=== PATIENT | male | born 1965 | race Caucasian/White ===

== ENCOUNTER 2017-12-18 01:37 | Observation (INO) ==
[2017-12-18] MEDS ORDERED: Naloxone 0.4 MG/ML INJ IVP PRN (02:07)
--- NOTE | 2017-12-18 02:46 | Internal Med History&Physical ---
<Kerline Cevallos Wiliam - Last Filed: 12/18/17 06:03> Date of Encounter: 12/18/17 Internal Medicine - H&P: HPI History of present illness: Mr. Briones is a 51 year old male Internal Medicine - H&P: Meds 3 Allergy/AdvReac Type Severity Reaction Status Date / Time No Known Allergies Allergy Verified 12/18/17 03:03 All Systems PM: A 10-system review of systems was performed and is negative for pertinent findings except as documented above in the HPI. - Constitutional Vitals: Temp Pulse Resp BP Pulse Ox 99.3 F 94 16 152/97 96 12/18/17 04:15 12/18/17 04:15 12/18/17 04:15 12/18/17 04:15 12/18/17 04:15 Internal Med - H&P Results - Labs CBC & Chem 7: 12/18/17 04:48 12/18/17 04:48 Labs: Short CBC 12/18/17 Range/Units 04:48 WBC 8.9 (4.3-11.1) K/mcL Hgb 13.2 (12.9-16.9) g/dL Hct 39.3 (37.5-50.1) % Plt Count 146 (140-400) K/mcL Neutrophils # 5.9 (1.6-8.9) K/mcL BMP 12/18/17 04:48 Sodium 137 Potassium 3.0 L Chloride 103 Carbon Dioxide 27 BUN 8 Creatinine 0.46 L Glucose 90 Calcium 9.0 Liver Function 12/18/17 Range/Units 04:48 Total Bilirubin 2.0 H (0.3-1.0) mg/dL AST 53 H (13-39) Units/L ALT 45 (7-52) Units/L Alkaline Phosphatase 55 (34-104) Units/L Albumin 4.1 (3.5-5.7) g/dL - Time Spent With Patient Total time spent is greater than 50% in coordination of care (as documented) at patient's floor/unit and/or counseling patient: - Attending Attestation Patient is a 51-year-old male with a past medical history of alcohol abuse who initially presented to [facility] in [place] with a chief complaint of a laceration to the right side of his head. According to records patient states that he had a seizure and fell and hit his head on an unknown object. The episode of loss of consciousness was reportedly witnessed by his boss at work. Patient was noted to have a sudden blank stare before falling over and losing consciousness. He has a history of daily alcohol use drinking 2/5 of vodka daily. Per records he states he has not had a drink today which "causes him to have seizures". Initial vitals on admission: Blood pressure 177/105, temperature 98.7, pulse 77 bpm, respiratory rate 21 satting 97% on room air. CT of the head was performed which showed no acute intracranial abnormality. Mild right lateral scalp swelling without evidence of fracture. Laboratory findings were unremarkable. Urine toxicology screen was negative. Initial troponin was less than 0.05 blood alcohol level was less than 10. EKG was performed which showed sinus rhythm with a ventricular rate of 79 bpm. No history of present illness was provided in the paperwork sent from [facility]. However we were told that patient has a prior history of seizures in the remote past possibly unrelated to alcohol withdrawal, which the patient corroborated. Last drink was reported to be on . Patient is currently stable, alert oriented 3. No evidence of postictal confusion. Hemodynamically stable. We will admit the patient for treatment of alcohol withdrawal and start patient on CIWA protocol. Patient received banana bag at [facility]. We will continue thiamine; folic acid; multivitamin. Check a.m. electrolytes. Neurology consult for the morning for further evaluation of patient's history of seizure disorder. <Tiffanie Robles - Last Filed: 12/18/17 09:44> Date of Encounter: 12/18/17 Time of Encounter: 02:45 Internal Medicine - H&P: HPI Chief complaint: EtOH withdrawal, seizure History of present illness: Mr. Briones is a 51 year old male presented to [facility] ED for alcohol withdrawal and seizure. The patient is somnolent and quickly falls asleep after being asked a question and doesn't respond to some questions. History difficult to obtain--he is a poor historian, his speech is difficult to understand, and has no prior visits to [place] to allow for reviewing records. Drinks 2 bottles (750 mL each) of vodka daily. Patient says he has seizures after he stops drinking. Reports last drink was yesterday morning. Admits to 3 episodes of non-bloody emesis today. He denies chest pain, dyspnea, headache, anxiety, hematemesis, coffee ground emesis, dysuria, and hematochezia. He denies any past medical history, including: CAD, previous ID, cirrhosis, COPD , gastric ulcers, pancreatitis--does not respond when asked about history of seizures not related to alcohol use. Denies past surgical history, takes no medications, and has no known allergies. Smokes 2-3 packs of cigarettes daily. Denies marijuana, prescription drug, and IV drug use. Currently living in a friend's camper. Regarding family history, he reports his mother of a seizure and had a stroke. ED course: Based on review of [facility] ED report--sustained scalp laceration after falling at time of his seizure. CT head was negative for acute intracranial processes and EKG didn't show signs of acute ischemia. Electrolytes were within normal limits. Elevations see in AST (98), ALT (86), and total bilirubin (2). Troponin negative. EtOH level measured < 10. Received IV banana bag. Transferred to [place] for remote history of seizures without follow up. Past Med Surg Social Fam HX - Social History Smoking Status: Current every day smoker Smokeless Tobacco Status: No Alcohol use: heavy - Family History Mother History Unknown: Yes All Systems PM: A 10-system review of systems was performed and is negative for pertinent findings except as documented above in the HPI. - Constitutional Constitutional: as per HPI - Cardiovascular Cardiovascular ROS IM: as per HPI - Respiratory Respiratory: as per HPI - Gastrointestinal Gastrointestinal: as per HPI - Constitutional Vitals: Temp Pulse Resp BP Pulse Ox 98.9 F 86 18 147/89 94 12/18/17 02:03 12/18/17 02:03 12/18/17 02:03 12/18/17 02:03 12/18/17 02:03 Exam: General: vital signs noted, somnolent, unkempt, no acute distress Head: normocephalic Eyes: PERRL ENT: edentulous Neck: supple, trachea midline Cardio: RRR; no murmurs, gallops, rubs; + S1/S2; no edema Pulm: exam limited by poor cooperation from patient, diminished airflow bilaterally, no respiratory distress; no wheezing or rhonchi Abd: soft, nontender, nondistended, normal bowel sounds Neuro: exam limited by poor cooperation from patient, no focal deficits or pronator drift, somnolent but able to follow commands, moves all extremities to command and spontaneously Ext: no lower extremity edema; 2+/4 radial pulses equal bilaterally, no gross deformities Psych: doesnt appear anxious or agitated Skin: warm, dry, intact Internal Med - H&P Results - Labs CBC & Chem 7: 12/18/17 04:48 12/18/17 04:48 - Assessment and plan (1) Alcohol withdrawal Current Visit: Yes Status: Acute Assessment and plan: IV banana bag given at [facility] Continue supplements thiamine, folate, and multivitamin NPO at this time [facility] protocol Qualifiers: Complication of substance-induced condition: with unspecified complication Qualified Code(s): F10.239 - Alcohol dependence with withdrawal, unspecified (2) Alcohol withdrawal seizure Current Visit: Yes Status: Acute Assessment and plan: Reportedly witnessed by patient's boss and described as patient having a blank stare before he fell and lost consciousness Qualifiers: Complication of substance-induced condition: with unspecified complication Qualified Code(s): F10.239 - Alcohol dependence with withdrawal, unspecified; R56.9 - Unspecified convulsions (3) Chronic alcohol abuse Current Visit: Yes Status: Acute Assessment and plan: Per patient, he drinks 2 bottles (750mL each) of vodka daily x 20 years As above (4) History of seizures Current Visit: Yes Status: Acute Assessment and plan: Details unclear Reportedly has remote h/o seizures possibly unrelated to EtOH use Seizure precautions Neurology consult (5) Tobacco abuse Current Visit: Yes Status: Chronic Assessment and plan: Per patient, he smokes 2-3 ppd (6) DVT prophylaxis Current Visit: Yes Status: Acute Assessment and plan: Heparin 5,000 units SubQ Q12H - Time Spent With Patient Total time spent is greater than 50% in coordination of care (as documented) at patient's floor/unit and/or counseling patient:
[2017-12-18 04:59] LABS: Basophils # 0.1 K/mcL (0.0-0.2); Basophils % 1.1 %; Eosinophils # 0.6 K/mcL (0.0-0.6); Eosinophils % 6.6 %; Hematocrit 39.3 % (37.5-50.1); Hemoglobin 13.2 g/dL (12.9-16.9); Immature Granulocytes % 0.3 % (0-4); Lymphocytes # 1.7 K/mcL (0.6-4.6); Lymphocytes % 18.6 %; Mean Corpuscular HGB Conc 33.6 g/dL (31.6-35.5); Mean Corpuscular Hemoglobin 33.2 pg (28.0-33.3); Mean Platelet Volume 10.9 fL (9.4-12.4); Monocytes # 0.6 K/mcL (0.0-1.3); Monocytes % 6.9 %; Neutrophils # 5.9 K/mcL (1.6-8.9); Platelet Count 146 K/mcL (140-400); Red Blood Count 3.97 M/mcL (4.19-5.50); Red Cell Distribution Width 13.6 % (11.5-14.5); Segmented Neutrophils % 66.5 %
[2017-12-18 05:07] LABS: Prothrombin Time 11.1 Seconds (9.4-12.1)
[2017-12-18 05:10] LABS: Activated Partial Thrombo Time 28.6 Seconds (26.0-36.0)
[2017-12-18 05:18] LABS: Alanine Aminotransferase 45 Units/L (7-52); Albumin 4.1 g/dL (3.5-5.7); Albumin/Globulin Ratio 1.8 (1.1-2.2); Alkaline Phosphatase 55 Units/L (34-104); Aspartate Amino Transferase 53 Units/L (13-39); BUN/Creatinine Ratio 17 (6-26); Blood Urea Nitrogen 8 mg/dL (6-20); Carbon Dioxide 27 mEq/L (23-29); Chloride 103 mEq/L (98-107); Globulin 2.3 g/dL (2.4-3.5); Glucose 90 mg/dL (70-105); Osmolality,Calculated 282 (280-300); Sodium 137 mEq/L (136-145); Total Protein 6.4 g/dL (6.4-8.9); eGFR For Non-African Americans > 60 (> 60)
[2017-12-18] MEDS ORDERED: *HR* LORazepam 2 MG/ML VIAL IVP PRN ×3 (05:23)
[2017-12-18] MEDS ORDERED: Potassium Chloride Elixir 20 MEQ/15 ML UDC PO ONE (06:01)
[2017-12-18 06:15] LABS: Creatine Kinase 443 Units/L (30-223); Magnesium 1.3 mg/dL (1.6-2.6); Phosphorous 3.3 mg/dL (2.7-4.5)
[2017-12-18] MEDS: *HR* Heparin 5,000 UNIT/ML VIAL SQ SCH ×2 (06:45→19:54)
[2017-12-18] MEDS ORDERED: Acetaminophen 325 MG TABLET PO ONE (08:38)
[2017-12-18] MEDS: Folic Acid 1 MG TABLET PO SCH (09:56)
[2017-12-18] MEDS: Thiamine (B-1) 100 MG TABLET PO SCH (09:56)
[2017-12-18] MEDS: Vitamin B Complex/Vit C/Vit E 1 EACH TABLET PO SCH (09:56)
--- NOTE | 2017-12-18 11:42 | Neurology - Consult Note ---
Date of Encounter: 12/18/17 Time of Encounter: 11:36 Assessment and Plan (1) Alcohol withdrawal seizure Current Visit: Yes Status: Acute I agree this is likely alcohol withdrawal seizure. Per history, he has had seizures as a baby but eventually he grew out of it until he started actively heavy drinking about 4-5 years ago. 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 next step would be to work on his alcoholism and to monitor progress via PCP. Please continue medical and supportive care Total time spend on this case is approximately 50 minutes and at least 50% was directed to patient care. Qualifiers: Complication of substance-induced condition: with unspecified complication Qualified Code(s): F10.239 - Alcohol dependence with withdrawal, unspecified; R56.9 - Unspecified convulsions History of Present Illness Chief complaint: seizure and alcohol withdrawl HPI: Mr. Briones is a 51 year old male with PMH significant for heavy alcoholism, liver cirrhosis, tobacco abuse who developed witnessed seizure with a fall. Patient was evaluated in the ER and initially he was very somnolent. Patient is currently wide awake and alert and is able to give medical history regarding his seizure. He states that his mother once told him that he had seizures when he was a baby and he grew out of it. Then he started having seizures about 4-5 years ago and they are alcohol related and states that if he stops drinking he have seizures. He has no recollection of the seizures though. He has not been evaluated by a neurologist. He was suggested to see a neurologist but he never did. He states that his last drink was yesterday morning and that he is ready to go home for a drink and also smoke. His last seizure before this one was two weeks ago. He states that he does not have insurance and he may not be able to afford seizure meds. He does not have a family physician. Past Med Surg Social Fam HX - Social History Smoking Status: Current every day smoker Smokeless Tobacco Status: No Alcohol use: heavy - Family History Mother History Unknown: Yes Medications and Allergies 3 Allergy/AdvReac Type Severity Reaction Status Date / Time No Known Allergies Allergy Verified 12/18/17 03:03 All Systems: The remainder of the systems were reviewed and are negative Physical Examination - Vital Signs Vital Signs: Initial Vital Signs Temp Pulse Resp BP Pulse Ox 98.9 F 86 18 147/89 94 12/18/17 02:03 12/18/17 02:03 12/18/17 02:03 12/18/17 02:03 12/18/17 02:03 - Constitutional General appearance: comfortable - Neurologic Detailed motor examination: full strength in all major muscle groups Motor examination - right side: 07/09: deltoids, biceps, triceps, wrist flexion, wrist extension, educational program assistant, hip flexors, tibialis Anterior, quadriceps, toe extension (EHL), plantarflexion Motor examination - left side: 07/09: deltoids, biceps, triceps, wrist flexion, wrist extension, hip flexors, educational program assistant, quadriceps, tibialis Anterior, toe extension (EHL), plantarflexion Mental Status Examination: awake, alert, oriented to person, oriented to place, oriented to time, follows commands appropriately, answers questions appropriately, no agnosia, no aphasia, no aproxia Cranial nerve examination: PERRL, EOMI, visual whipple intact, corneal reflexes brisk symmetrically, sensory to face intact, mastication intact, no facial asymmetry is present, no dysarthria, hearing is intact symmetrically, soft palate elevates bilaterally upon phonation, gag reflex intact, flexes SCM and trapezius muscles symmetrically with full power, tongue protrudes midline, no atrophy or facial fasiculations present Cerebellar examination: no dysmetria, performs finger to nose and heel to tan symmetrically without ataxia, no gait ataxia, no truncal ataxia, no difficulty with rapid alternating movements Results - Laboratory Findings CBC and BMP: 12/18/17 04:48 12/18/17 04:48 Abnormal lab findings: Abnormal lab results RBC 3.97 M/mcL (4.19-5.50) L 12/18/17 04:48 Potassium 3.0 mEq/L (3.5-5.1) L 12/18/17 04:48 Creatinine 0.46 mg/dL (0.70-1.30) L 12/18/17 04:48 Magnesium 1.3 mg/dL (1.6-2.6) L 12/18/17 04:48 Total Bilirubin 2.0 mg/dL (0.3-1.0) H 12/18/17 04:48 AST 53 Units/L (13-39) H 12/18/17 04:48 Creatine Kinase 443 Units/L (30-223) H 12/18/17 04:48 Globulin 2.3 g/dL (2.4-3.5) L 12/18/17 04:48 Consult Discharge Plan - Plan Referrals: Liz Forbes, TRACI [Primary Care Provider] -
--- NOTE | 2017-12-18 14:39 | Event Note ---
Date of Encounter: 12/18/17 Time of Encounter: 11:00 Patient seen by hosptialist earlier this morning. Continue CIWA and seizure precautions
[2017-12-18] MEDS: Acetaminophen 325 MG TABLET PO PRN (23:13)
[2017-12-18] MEDS ORDERED: Nicotine 21 MG PATCH.TD24 TD SCH (23:45)
--- NOTE | 2017-12-18 23:45 | Event Note ---
Date of Encounter: 12/18/17 Time of Encounter: 23:42 Alerted by pts. nurse KASSNADRA Angel that pt. had just been caught smoking in his bathroom. Nurse reported pt. was calm about the situation and admitted to smoking. Pt. was amenable to nicotine patch. 21 mg patch ordered to start now. Pt. to be monitored closely.
[2017-12-19] MEDS: *HR* Heparin 5,000 UNIT/ML VIAL SQ SCH (06:02)
[2017-12-19 06:58] VITALS: BP 153/97
[2017-12-19] MEDS: Folic Acid 1 MG TABLET PO SCH (07:38)
[2017-12-19] MEDS: Thiamine (B-1) 100 MG TABLET PO SCH (07:38)
[2017-12-19] MEDS: Acetaminophen 325 MG TABLET PO PRN (07:39)
[2017-12-19] MEDS: Vitamin B Complex/Vit C/Vit E 1 EACH TABLET PO SCH (07:40)
[2017-12-19 08:56] LABS: Basophils # 0.1 K/mcL (0.0-0.2); Basophils % 1.1 %; Eosinophils # 0.7 K/mcL (0.0-0.6); Eosinophils % 11.7 %; Hematocrit 38.5 % (37.5-50.1); Immature Granulocytes % 0.3 % (0-4); Lymphocytes # 1.6 K/mcL (0.6-4.6); Lymphocytes % 26.2 %; Mean Corpuscular HGB Conc 33.8 g/dL (31.6-35.5); Mean Corpuscular Hemoglobin 33.6 pg (28.0-33.3); Mean Corpuscular Volume 99.5 fL (83.0-100.0); Mean Platelet Volume 11.3 fL (9.4-12.4); Monocytes # 0.5 K/mcL (0.0-1.3); Monocytes % 8.3 %; Neutrophils # 3.2 K/mcL (1.6-8.9); Platelet Count 129 K/mcL (140-400); Red Blood Count 3.87 M/mcL (4.19-5.50); Red Cell Distribution Width 13.8 % (11.5-14.5); Segmented Neutrophils % 52.4 %
[2017-12-19 09:14] LABS: Alanine Aminotransferase 59 Units/L (7-52); Albumin 4.1 g/dL (3.5-5.7); Albumin/Globulin Ratio 1.8 (1.1-2.2); Alkaline Phosphatase 50 Units/L (34-104); Aspartate Amino Transferase 78 Units/L (13-39); BUN/Creatinine Ratio 26 (6-26); Bilirubin,Total 1.5 mg/dL (0.3-1.0); Blood Urea Nitrogen 14 mg/dL (6-20); Calcium 9.4 mg/dL (8.6-10.3); Carbon Dioxide 27 mEq/L (23-29); Chloride 106 mEq/L (98-107); Globulin 2.3 g/dL (2.4-3.5); Glucose 102 mg/dL (70-105); Osmolality,Calculated 285 (280-300); Potassium 4.3 mEq/L (3.5-5.1); Sodium 137 mEq/L (136-145); Total Protein 6.4 g/dL (6.4-8.9); eGFR For Non-African Americans > 60 (> 60)
--- NOTE | 2017-12-19 13:13 | Discharge Summary ---
Date of Encounter: 12/19/17 Time of Encounter: 11:00 - Discharge Diagnosis (1) Chronic alcohol abuse Priority: Primary Status: Acute (2) Alcohol withdrawal Priority: Primary Status: Acute Qualifiers: Complication of substance-induced condition: uncomplicated Qualified Code(s ): F10.230 - Alcohol dependence with withdrawal, uncomplicated (3) History of seizures Priority: Primary Status: Acute (4) Alcohol withdrawal seizure Priority: Primary Status: Acute Qualifiers: Complication of substance-induced condition: with unspecified complication Qualified Code(s): F10.239 - Alcohol dependence with withdrawal, unspecified; R56.9 - Unspecified convulsions (5) Tobacco abuse Priority: Primary Status: Chronic Hospital course: Patient is a 51-year-old male with past medical history significant for alcohol abuse/dependence who presents from [facility] due to alcohol withdrawal with seizure. Patient reports of drinking 2 bottles (750 mL each) of vodka daily. Patient says he has seizures after he stops drinking. He smokes 2-3 packs of cigarettes daily. Currently he is homeless and is living in a friend's camper. At [facility] he was noted to have sustained scalp laceration after falling at time of his seizure. CT head was negative for acute intracranial processes and EKG didn't show signs of acute ischemia. Electrolytes were within normal limits. Elevations see in AST (98), ALT (86), and total bilirubin (2). Troponin negative. EtOH level measured < 10. Received IV banana bag. He was transferred to [place] for remote history of seizures without follow up. During patients hospital stay neurology was consulted with no further recommendations and suspected that seizure was secondary to alcohol withdrawal. Patient was being set up with case management/social work for resources concerning his homelessness but patient left [facility]. - Time Spent with Patient Total time spent providing and/or coordinating discharge services: Less than 30 minutes - Discharge Medications Home Medications: No Known Home Drugs 12/19/17 [History] Allergies/Adverse Reactions: 3 Allergy/AdvReac Type Severity Reaction Status Date / Time No Known Allergies Allergy Verified 12/18/17 03:03 Date of admission: 12/18/17 01:37 Primary care physician: Liz Forbes CNP Consults: 12/18/17 05:28 Consult to Neurology [CONS] Routine Consulting Provider: Neurology [facility] Reason for Consult: remote history of seizures without follow up Call Completed: No 12/19/17 09:51 Consult to Electrical Tester Battery [CONS] Routine Reason for SW Consult: For substance abuse/alcohol and patient states is homeless - Constitutional Vitals: Temp Pulse Resp BP Pulse Ox 98.8 F 81 17 153/97 96 12/19/17 06:55 12/19/17 06:55 12/19/17 06:55 12/19/17 06:55 12/19/17 06:55 General appearance: Present: A&O X 3 Exam: As above - Patient Status Disposition: Left Against Medical Advice Condition: Undetermined - Discharge Instructions Follow Up With: Liz Forbes FILTRATION SUPERVISOR [Primary Care Provider] -
== END 2017-12-19 12:05 | disposition left against medical advice (07) ==
LOC: 2NENU → SUATTDRO 01:37
PROVIDERS: ADMIT Internal Medicine; ATTEND Hospitalist